=== PATIENT | male | born 1980 | race Two or more races ===

== ENCOUNTER 2016-12-26 11:04 | Emergency (ER) | payer BC, OTHER ==
--- NOTE | 2016-12-26 11:12 | EDM.PDOC ---
ED HPI GENERAL MEDICAL PROBLEM - General Chief Complaint: Syncope Stated Complaint: [facility] Time Seen by Provider: 12/26/16 11:11 - History of Present Illness INITIAL COMMENTS - FREE TEXT/NARRATIVE: 36-year-old male presents to the emergency room by EMS after having an episode of lightheadedness and feeling somewhat strange. The patient was driving and did not feel right he has a history of type 2 diabetes and is on insulin he stopped by the [facility] his blood sugar was high at that time. They worked with him for 30-40 minutes. And then decided to transfer. In the transfer the patient developed some mild chest discomfort. Patient has a history of anxiety and it usually doesn't act quite like this he was concerned that his blood sugar was too low. Patient has a seven-year history of type 2 diabetes he has had significant weight loss and near normalization is otherwise hemoglobin A1c over the last couple years. He exercises on a regular basis and this does not provoke any chest pain breathing difficulties shortness of breath or palpitations. He has had significant weight loss which has helped with diet and exercise. - Related Data Allergies Allergy/AdvReac Type Severity Reaction Status Date / Time No Known Allergies Allergy Verified 12/26/16 11:18 Home Meds: Home Meds Insulin Glarg,Human.Rec.Analog [Lantus] 20 unit SQ BID 12/26/16 [History] LORazepam 0.5 mg PO TID PRN 12/26/16 [History] atorvaSTATin [Lipitor] 0 mg PO DAILY 12/26/16 [History] busPIRone [Buspar] 7.5 mg PO BID 12/26/16 [History] metFORMIN HCl [Metformin HCl] 1,000 mg PO BID 12/26/16 [History] ED ROS GENERAL - Review of Systems Review Of Systems: See Below Constitutional: Reports: other (He generally did not feel well was week may have had some palpitations) HEENT: Reports: No symptoms Respiratory: Reports: No Symptoms Cardiovascular: Reports: Chest pain, Palpitations GI/Abdominal: Reports: No symptoms : Reports: no symptoms Neurological: Reports: Other (Lightheadedness like some dizziness he did not pass out) Psychiatric: Reports: Anxiety ED EXAM, GENERAL - Physical Exam Exam: See Below Exam Limited By: No limitations General Appearance: alert, no apparent distress Eye Exam: bilateral eye: normal inspection Head: atraumatic, normocephalic Neck: normal inspection, supple, non-tender, full range of motion Respiratory/Chest: no respiratory distress, lungs clear, normal breath sounds Cardiovascular: regular rate, rhythm, no edema, no murmur GI/Abdominal: normal bowel sounds, soft, non tender, no organomegaly. No: rigid , rebound Neurological: alert, oriented, CN II-XII intact, normal cognition EKG INTERPRETATION EKG Date: 12/26/16 Rhythm: other (Mild sinus tachycardia rate around 100) [place]: normal P-wave: present QRS: normal ST-T: other (Early repolarization) QT: normal Comparison: NA - no prior EKG Course - Vital Signs Last Recorded V/S: Last Vital Signs Temp 36.6 C 12/26/16 11:08 Pulse 102 H 12/26/16 11:08 Resp 17 12/26/16 11:08 BP 152/82 H 12/26/16 11:08 Pulse Ox 97 12/26/16 11:08 - Orders/Labs/Meds Orders: Active Orders 24 hr Category Date Time Status EKG 12 Lead [EKG Documentation Completion] [RC] STAT Care 12/26/16 11:22 Active Chest 1V Frontal [CR] Stat Exams 12/26/16 11:36 Taken Labs: Laboratory Tests 12/26/16 12/26/16 12/26/16 Range/Units 11:50 11:50 11:50 WBC 8.71 (4.23-9.07) K/mm3 RBC 4.98 (4.63-6.08) M/mm3 Hgb 14.1 (13.7-17.5) gm/L Hct 39.4 L (40.1-51.0) % MCV 79.1 (79.0-92.2) fl MCH 28.3 (25.7-32.2) pg MCHC 35.8 H (32.2-35.5) g/dl RDW Std Deviation 34.6 L (35.1-43.9) fL Plt Count 260 (163-337) K/mm3 MPV 10.1 (9.4-12.3) fl Neutrophils % (Manual) 87 H (40-60) % Band Neutrophils % 0 (0-10) % Lymphocytes % (Manual) 8 L (20-40) % Atypical Lymphs % 0 % Monocytes % (Manual) 5 (2-10) % Eosinophils % (Manual) 0 L (0.8-7.0) % Basophils % (Manual) 0 L (0.2-1.2) Platelet Estimate Adequate RBC Morph Comment Normal PT 10.7 (8.0-13.0) SECONDS INR 0.98 APTT 25 (22-36) SECONDS Sodium 136 (136-145) mEq/L Potassium 4.2 (3.5-5.1) mEq/L Chloride 98 (98-107) mEq/L Carbon Dioxide 27 (21-32) mEq/L Anion Gap 15.2 H (5-15) BUN 20 H (7-18) mg/dL Creatinine 1.2 (0.7-1.3) mg/dL Est Cr Clr Drug Dosing 85.92 mL/min Estimated GFR (MDRD) > 60 (>60) mL/min BUN/Creatinine Ratio 16.7 (14-18) Glucose 331 H (74-106) mg/dL Calcium 9.2 (8.5-10.1) mg/dL Magnesium 1.5 L (1.8-2.4) mg/dl Total Bilirubin 1.3 H (0.2-1.0) mg/dL AST 24 (15-37) U/L ALT 81 H (16-63) U/L Alkaline Phosphatase 87 (46-116) U/L Troponin I < 0.017 (0.00-0.056) ng/mL Total Protein 7.7 (6.4-8.2) g/dl Albumin 3.9 (3.4-5.0) g/dl Globulin 3.8 gm/dL Albumin/Globulin Ratio 1.0 (1-2) 12/26/17 Range/Units 14:55 WBC (4.23-9.07) K/mm3 RBC (4.63-6.08) M/mm3 Hgb (13.7-17.5) gm/L Hct (40.1-51.0) % MCV (79.0-92.2) fl MCH (25.7-32.2) pg MCHC (32.2-35.5) g/dl RDW Std Deviation (35.1-43.9) fL Plt Count (163-337) K/mm3 MPV (9.4-12.3) fl Neutrophils % (Manual) (40-60) % Band Neutrophils % (0-10) % Lymphocytes % (Manual) (20-40) % Atypical Lymphs % % Monocytes % (Manual) (2-10) % Eosinophils % (Manual) (0.8-7.0) % Basophils % (Manual) (0.2-1.2) Platelet Estimate RBC Morph Comment PT (8.0-13.0) SECONDS INR APTT (22-36) SECONDS Sodium (136-145) mEq/L Potassium (3.5-5.1) mEq/L Chloride (98-107) mEq/L Carbon Dioxide (21-32) mEq/L Anion Gap (5-15) BUN (7-18) mg/dL Creatinine (0.7-1.3) mg/dL Est Cr Clr Drug Dosing mL/min Estimated GFR (MDRD) (>60) mL/min BUN/Creatinine Ratio (14-18) Glucose (74-106) mg/dL Calcium (8.5-10.1) mg/dL Magnesium (1.8-2.4) mg/dl Total Bilirubin (0.2-1.0) mg/dL AST (15-37) U/L ALT (16-63) U/L Alkaline Phosphatase (46-116) U/L Troponin I < 0.017 (0.00-0.056) ng/mL Total Protein (6.4-8.2) g/dl Albumin (3.4-5.0) g/dl Globulin gm/dL Albumin/Globulin Ratio (1-2) Meds: Medications Discontinued Medications Generic Name Dose Route Start Last Admin Trade Name Freq PRN Reason Stop Dose Admin Magnesium Sulfate/Dextrose 1 100 mls @ 100 mls/hr 12/26/16 14:11 12/26/16 14: 19 gm/ Premix IV 12/26/16 15:10 100 mls/hr ONETIME ONE Administration Lorazepam 0.5 mg 12/26/16 11:37 12/26/16 11:46 Ativan IVPUSH 12/26/16 11:38 0.5 mg ONETIME ONE Administration - Re-Assessments/Exams Free Text/Narrative Re-Assessment/Exam: 12/26/16 15:48 Patient had near immediate relief after receiving some IV Ativan 0.5 mg. His EKG was normal chest x-ray normal labs unremarkable except his magnesium is a little low. He did receive a gram of IV magnesium he was observed for 3 hours second troponin obtained this was negative as well. He has a heart score of one. The patient is here working he will be up to discuss this with his regular physician tomorrow over the phone but should be seen later this week if possible it is recommended that they discuss possible cardiac stress testing and possible heart monitoring such as a Holter. Departure - Departure Time of Disposition: 15:44 Disposition: Home, Self-Care 01 Clinical Impression: Anxiety, Chest pain, Hyperglycemia Forms: ED Department Discharge Additional Instructions: Return to emergency room if any questions or problems. Call your regular physician tomorrow. Consider outpatient heart monitoring looking for irregular heartbeat. Consider cardiac stress test. Followup with your regular physician this next week. Take it easy the next couple of days. - My Orders Last 24 Hours: My Active Orders 12/26/16 11:22 EKG 12 Lead [EKG Documentation Completion] [RC] STAT 12/26/16 11:36 Chest 1V Frontal [CR] Stat - Assessment/Plan Last 24 Hours: My Active Orders 12/26/16 11:22 EKG 12 Lead [EKG Documentation Completion] [RC] STAT 12/26/16 11:36 Chest 1V Frontal [CR] Stat
[2016-12-26] MEDS ORDERED: LORazepam 2 MG/ML MDV IVPUSH ONE (11:37)
[2016-12-26 16:11] VITALS: BP 128/73
--- NOTE | 2016-12-27 06:52 | CR ---
Chest: Portable view of the chest was obtained. Comparison: No previous study. Heart size and mediastinum are normal. Lungs are clear. Bony structures are grossly intact. Impression: 1. Nothing acute is identified on portable chest x-ray. Diagnostic code #1
== END 2016-12-26 16:07 | disposition home or self-care (01) ==
LOC: JD.ED 11:04
DX: F41.9 Anxiety disorder, unspecified (principal); R07.9 Chest pain, unspecified; E11.65 Type 2 diabetes mellitus with hyperglycemia; Z79.4 Long term (current) use of insulin; Z79.899 Other long term (current) drug therapy
CPT/HCPCS: 36415; 71010; 80053; 82962; 83735; 84484; 85025; 85610; 85730; 93005; 96365; 96375; 99285; J2060; J3475